=== PATIENT | male | born 1990 | race Caucasian/White ===

== ENCOUNTER 2020-02-29 09:35 | Emergency (ER) | payer MEDICAID ==
[~2020-02-29] VITALS: Ht 177.8 cm; Wt 93.4 kg
--- NOTE | 2020-02-29 10:01 | NUR ---
ASSUME PT CARE, WAS BIBRA FROM THE STREETS, PARANOID YELLING "THEY WILL KILL ME." AGITATED AND WONT STAY IN HIS BED. SECURITY CALLED. SITTER AT BEDSIDE.
--- NOTE | 2020-02-29 10:03 | NUR ---
DR RAMACHANDRAN AT BEDSIDE FOR EVAL.
[2020-02-29] MEDS ORDERED: OLANZAPINE 10 MG VIAL IM ONE ×2 (10:16→10:30)
[2020-02-29 10:18] LABS: BASOPHILS % (AUTO) 0.6 % (0.0-2.0); EOSINOPHILS % (AUTO) 0.1 % (0.0-6.0); HEMATOCRIT 43 % (39-51); HEMOGLOBIN 14.4 g/dL (13.5-17.5); LYMPHOCYTES # (AUTO) 0.5 /CMM (0.8-4.8); LYMPHOCYTES % (AUTO) 6.3 % (20.0-44.0); MEAN CORPUSCULAR HGB CONC 34 g/dl (31.0-36.0); MEAN CORPUSCULAR VOLUME 89 fL (80-96); MONOCYTES # (AUTO) 0.6 /CMM (0.1-1.30); MONOCYTES % (AUTO) 7.5 % (2.0-12.0); NEUTROPHILS # (AUTO) 6.4 /CMM (1.8-8.9); NEUTROPHILS % (AUTO) 85.5 % (43.0-81.0); PLATELET COUNT (AUTO) 286 /CMM (150-450); WHITE BLOOD COUNT (AUTO) 7.4 K/uL (4.3-11.0)
[2020-02-29] MEDS ORDERED: LORAZEPAM INJ 2 MG/ML VIAL ONE (10:18)
[2020-02-29 10:28] LABS: CALCIUM, SERUM 9.2 mg/dL (8.5-10.1); CARBON DIOXIDE 27 mmol/L (21-32); CHLORIDE 102 mmol/L (98-107); GLUCOSE 101 mg/dL (74-106); POTASSIUM 3.7 mmol/L (3.5-5.1); SODIUM SERUM 137 mmol/L (136-145); UREA NITROGEN, BLOOD 10 mg/dL (7-18)
--- NOTE | 2020-02-29 10:28 | NUR ---
PT ACTING PSYCHOTIC, YELLING "THEY GONNA KILL ME."
[2020-02-29] MEDS ORDERED: LORAZEPAM INJ 2 MG/ML VIAL IM ONE (10:30)
[2020-02-29 10:32] LABS: ACETAMINOPHEN 0 ug/ml (10-30); ALCOHOL, BLOOD < 3 mg/dL (0-0); SALICYLATE 2.9 mg/dL (2.8-20.0)
[2020-02-29 10:46] LABS: APPEARANCE,URINE Clear (CLEAR); BILIRUBIN,URINE Negative (NEGATIVE); BLOOD, URINE Negative Ery/uL (NEGATIVE); COLOR,URINE Yellow (YELLOW); KETONES,URINE Trace (NEGATIVE); LEUKOCYTE ESTERASE ,URINE Negative (NEGATIVE); NITRITE, URINE Negative (NEGATIVE); PROTEIN,URINE Negative (NEGATIVE); UGLUCOSE Negative (NEGATIVE); UROBILINOGEN,URINE 0.2 EU/dL (0.2)
[2020-02-29 10:50] LABS: ALANINE AMINOTRANSFERASE 16 U/L (12-78); ALBUMIN 4.4 g/dL (3.4-5.0); ALKALINE PHOSPHATASE 101 U/L (46-116); ASPARTATE AMINOTRANSFERASE 25 U/L (15-37); BILIRUBIN,DIRECT 0.1 mg/dL (0.0-0.2); BILIRUBIN,TOTAL 0.5 mg/dL (0.2-1.0)
[2020-02-29 10:52] LABS: BACTERIA,URINE Rare /HPF (None Seen); RBC,URINE 0-2 /HPF (0-2); SQUAMOUS EPITHELIAL CELL,UR Rare /HPF (None Seen); WBC,URINE 0-2 /HPF (0-3)
--- NOTE | 2020-02-29 12:00 | NUR ---
PT IS SLEEPING. ON MONITOR. VSS. WILL CONTINUE TO MONITOR.
--- NOTE | 2020-02-29 14:38 | NUR ---
PT IS AWAKE. VERBALLY RESPONSIVE STATING SUICIDAL W/ PLAN TO RUN IN FRONT OF A CAR. SITTER AT BEDSIDE.
--- NOTE | 2020-02-29 14:54 | NUR ---
JARROD received a call from ED RN Dejuan stating pt is stating he is suicidal with a plan to run in front of a car. JARROD conducted chart review and called Steve at [facility] to initiate voluntary psychiatric hospitalization. JARROD faxed clinicals to [facility] intake dept.
--- NOTE | 2020-02-29 16:08 | NUR ---
[employer] contacted [facility] intake and spoke with Wendy for an update. Per Wendy, pt has been referred to [facility] and is awaiting a call back. [employer] informed Wendy to f/u directly with ED for acceptance to [facility].
--- NOTE | 2020-02-29 17:12 | NUR ---
PT ADMITTED AT [facility]. ADMITTING DR SEBASTIAN/DR MONZON GOING TO P6, OPEN UNIT REPORT AFTER 1899: [phone] EXT [phone]
--- NOTE | 2020-02-29 18:10 | NUR ---
CALLED TRANSPORT [facility] REQUESTED 2029 PER MELLY REYES
--- NOTE | 2020-02-29 19:17 | NUR ---
REPORT TO NESSA REYES FOR [facility].
[2020-02-29 19:28] VITALS: BP 136/60
--- NOTE | 2020-02-29 19:30 | NUR ---
CALLED REPORT, NURSE UNAVAILABLE AT THIS TIME.
--- NOTE | 2020-02-29 20:01 | NUR ---
REPORT GIVEN TO KRUPA AT [facility]. AWAITING TRANSPORT AMBULANCE.
--- NOTE | 2020-02-29 21:00 | NUR ---
AMBULANCE AT BEDSIDE FOR TRANSPORT.
== END 2020-02-29 21:03 ==
LOC: ER 09:35
DX: F19.959 Other psychoactive substance use, unspecified with psychoactive substance-induced psychotic disorder, unspecified (principal); F22 Delusional disorders; F15.10 Other stimulant abuse, uncomplicated; Z59.0 Homelessness
CPT/HCPCS: 36415; 80048; 80076; 80305; 80307; 80329; 81001; 85025; 96372 ×2; 99285; G0480; J2060; J3490; 81000-TC